=== PATIENT | male | born 1970 | race Caucasian/White ===

== ENCOUNTER 2019-08-27 10:57 | Emergency (ER) | payer MEDICAID, SELFPAY ==
[2019-08-27 11:00] VITALS: BP 121/83; PULSE 95; RESP 16; TEMP 37.1; O2SAT 99; BMI 28.6
--- NOTE | 2019-08-27 11:02 | ED_ITS ---
Entered by Jackelyn Delgado, acting as scribe for Michelle Hong DO HPI - Anxiety General: Chief Complaint: Anxiety Stated Complaint: ANXIETY; MED ADJUSTMENT Time Seen by Provider: 08/27/19 11:01 Source: patient Mode of arrival: EMS Limitations: no limitations History of Present Illness: HPI narrative: 49 yo m came to the er by [facility] For Anxiety and out of medication. Onset was today. Pt states that he did some meth about a week ago and then after he quit a day or 2 after he started to feel anxious. Pt said that when he used the meth he smoked it. Pt has had some feeling of being over whelmed, agitated and afraid. Pt is denying hallucinations, seeing things and any SI thoughts at this time. Pt has had done weed in the past but no alcohol. MD complaint: anxiety and other (out of medication) Severity: mild Quality: intermittent Place: home History of similar episodes: Yes Provoking factors: emotional stress Relieving factors: other (drugs) Exacerbating factors: nothing Associated symptoms: Reports no associated symptoms; Deny chest pain, chills, fever(s), headache(s), nausea or vomiting Review of Systems General: Reports: other (negative unless marked) Const: Denies: fever or chills ENMT: Denies: throat pain Card: Denies: chest pain Resp: Denies: shortness of breath or productive cough GI: Denies: nausea, vomiting, diarrhea, constipation or blood in stool Musc: Denies: back pain or extremity swelling Skin/Breast: Denies: rash Neuro: Denies: headache, numbness in extremities or weakness in extremities [facility] ED PFSH: Social History Smoking and tobacco status: current every day smoker Physical Exam Const: COMMON NORMALS: no apparent distress and oriented x3 GENERAL APPEARANCE: cooperative; not in distress HENMT: COMMON NORMALS: normocephalic HEAD & SCALP: normal to inspection and normocephalic MOUTH: oral and palatal mucosa normal and lip normal THROAT: posterior oropharynx normal and tonsils normal Neck/C-Spine: COMMON NORMALS: full ROM, no lymphadenopathy, supple and no meningeal signs GENERAL: Yes normal visual inspection and Yes trachea midline Chest: COMMONS NORMALS: inspection of chest normal Resp: COMMON NORMALS: normal respiratory effort, no retractions and clear to auscultation bilaterally EFFORT & INSPECTION: Yes able to speak in complete sentences and No respiratory distress AUSCULTATION: clear to auscultation bilaterally, no rales, no rhonchi and no wheezes Cardio: COMMON NORMALS: regular rate, regular rhythm, S1 normal heart sound, S2 normal heart sound and no murmurs RATE: regular rate RHYTHM: regular rhythm HEART SOUNDS: S1 normal and S2 normal PERIPHERAL PULSES: radial pulses present and dorsalis pedis pulses present GI: COMMON NORMALS: normal to inspection, nondistended, normoactive bowel sounds, soft to palpation and non-tender INSPECTION: Yes normal to inspection AUSCULTATION: Yes normoactive bowel sounds PALPATION: Yes soft, No tender, No guarding and No rigid RECTAL EXAM: Yes deferred : COMMON NORMALS: Yes no CVA tenderness BLADDER/KIDNEY EXAM: Yes no CVA tenderness Back/Pelvis: COMMON NORMALS: no CVA tenderness Extremity: COMMON NORMALS: normal to inspection, full ROM, normal capillary refill, no calf tenderness and no pedal edema Neuro: COMMON NORMALS: oriented x3, CN's II-XII intact bilaterally, moves all extremities and no focal motor deficits MENINGEAL SIGNS: Yes no meningeal signs Psych: COMMON NORMALS: mental status grossly normal, thought process normal, denies hallucinations, denies homicidal ideation and denies suicidal ideation ATTITUDE: Yes calm ACTIVITY/MOTOR BEHAVIOR: Yes appropriate eye contact THOUGHT PROCESS: normal thought process THOUGHT CONTENT: Yes normal thought content JUDGEMENT: fair Skin: COMMON NORMALS: no rashes or lesions noted GENERAL SKIN EXAM: no rashes or lesions noted Course Vital Signs: Vital signs: Vital Signs Temperature 98 F 08/27/19 12:08 Pulse Rate 76 08/27/19 12:08 Respiratory Rate 16 08/27/19 12:08 Blood Pressure 142/90 08/27/19 12:08 Pulse Oximetry 98 08/27/19 12:08 MDM - Anxiety MDM Narrative: Medical decision making narrative: Pt is not suicidal or homicidal, he states he feels lke he needs to get donna in with [facility]. I will have case management get him set up with an appointment as an outpt, he is not p sychotic, we have discussed that meth can cause damage to hid kidneys and heart and he knows that he needs to quit. He states he feels much better now and is hungry. EKG Data^: EKG 1: Interpretation: Chest X-Ray 08/27/19 11:11 IMPRESSION: No acute findings. Other EKG comments: Chest X-Ray 08/27/19 11:11 IMPRESSION: No acute findings. Draft Patient: Celio York #: [id number] : 1970Acct#:[id number] Age/Sex: 49 / MADM Date: 08/27/19 Loc: ERRoom/Bed: Attending Dr: Ordering Provider/Ordering MD: Michelle Hong DO Date of Service: 08/27/19 Procedure(s): ECG 12 lead EKG Accession Number(s): [id number] Report Number: [id number] Measurements Intervals [place] Rate: 57 P: 42 CT: 162 QRS: 5 QRSD: 89 T: 42 QT: 428 QTc: 417 SINUS BRADYCARDIA Compared to ECG 01/04/2016 01:51:36 Prolonged QT interval no longer present [id number] Dictated By:INTERFACE,USER Signed By:Signed Date/Time: DD/ 26 Lab Data: Attestation: I reviewed the patient's lab results. Labs: Lab Results 08/27/19 08/27/19 Range/Units 11:18 11:18 WBC 4.9 (4.0-10.0) 10^3/ uL RBC 5.61 H (4.1-5.3) 10^6/u L Hgb 17.7 H (11.7-16.6) g/dL Hct 52.8 H (42.0-52.0) % MCV 94.1 H (80-94) fL MCH 31.6 (28.0-34.0) pg MCHC 33.5 (30.0-36.0) g/dL RDW 12.4 (12.1-15.1) % Plt Count 277 (130-400) 10^3/c mm MPV 10.1 (7.4-10.4) fL Neut % (Auto) 22.2 % Lymph % (Auto) 57.3 % [place] % (Auto) 18.1 % Eos % (Auto) 1.4 % Baso % (Auto) 1.0 % Neut # (Auto) 1.1 L (1.8-7.7) 10^3/u L Lymph # (Auto) 2.8 (0.8-4.8) 10^3/u L [place] # (Auto) 0.9 (0.2-0.9) 10^3/u L Eos # (Auto) 0.1 (0.0-0.8) 10^3/u L Baso # (Auto) 0.1 (0.0-0.1) 10^3/u L Nucleated RBC % (a uto) 0 % Nucleated RBCs # 0.0 /100WBC Sodium 141 (136-145) mmol/L Potassium 4.2 (3.5-5.1) mmol/L Chloride 102 (98-107) mmol/L Carbon Dioxide 29 (22-29) mmol/L Anion Gap 14.2 (5-19) BUN 5 L (6-20) mg/dL Creatinine 0.9 (0.7-1.2) mg/dL GFR Calculation 90.1 (90-130) mL/min Glucose 106 (65-115) mg/dL Calculated Osmolal ity 288 (285-295) mOsm/k g Calcium 10.2 (8.5-10.5) mg/dL Phosphorus 2.4 L (2.5-4.5) mg/dL Magnesium 2.3 (1.7-2.3) mg/dL Total Bilirubin 0.7 (0.15-1.2) mg/dL AST 36 (0-40) U/L ALT 41 (0-41) U/L Alkaline Phosphata se 100 (40-130) IU/L Creatine Kinase 71 (39-308) U/L Total Protein 8.3 (6.6-8.7) g/dL Albumin 4.8 (3.5-5.2) g/dL Globulin 3.5 (1.3-4.6) g/dL Discharge Plan Discharge Patient Disposition: Home, Self-Care Clinical Impression: Acute anxiety, Methamphetamine abuse Condition: Stable Discharge Orders: Discharge Order (Routine); Ordered 08/27/19 Ordered By: Michelle Hong Referrals: Mary Alamo, RN [Emergency Nurse] - 1-3 days Discharge Diet: Advance as tolerated Discharge Activity: Resume usual activity Patient Instructions: Depression (ED), Anxiety (ED) Activity Restrictions/Additional Instructions: f/u with [facility] as instructed by case management. Return if worse, any problem, any change. stop using meth Discharge Date/Time: 08/27/19 12:11 Coding Level of Care Code ED Environmental Field Team Member for Chg Fwd Exam Comprehensive The documentation recorded by the Danny stovall Stephanie Lyn, accurately reflects the service I personally performed and the decisions made by , Michelle Hong, DO
--- NOTE | 2019-08-27 11:11 | XRR_ITS ---
PROCEDURE INFORMATION: Exam: XR Chest, 1 View Exam date and time: 08/27/2019 11:38 AM Age: 49 years old Clinical indication: Shortness of breath TECHNIQUE: Imaging protocol: XR of the chest Views: 1 view. COMPARISON: No relevant prior studies available. FINDINGS: Lungs: Unremarkable. No consolidation. Pleural space: Unremarkable. No pleural effusion. No pneumothorax. Heart/Mediastinum: Unremarkable. No cardiomegaly. Bones/joints: Unremarkable. XR/XR chest 1V portable [id number] IMPRESSION: No acute findings.
--- NOTE | 2019-08-27 11:13 | ECG_ITS ---
Measurements Intervals [place] Rate: 57 P: 42 MS: 162 QRS: 5 QRSD: 89 T: 42 QT: 428 QTc: 417 SINUS BRADYCARDIA Compared to ECG 01/04/2016 01:51:36 Prolonged QT interval no longer present Electronically Signed On 08-28-2019 17:20:27 CDT by Osman Rodriguez M.D. [id number]
[2019-08-27 11:22] LABS: Basophils # 0.1 10^3/uL (0.0-0.1); Eosinophils # 0.1 10^3/uL (0.0-0.8); Eosinophils % 1.4 %; Hematocrit 52.8 % (42.0-52.0); Hemoglobin 17.7 g/dL (11.7-16.6); Lymphocytes # 2.8 10^3/uL (0.8-4.8); Lymphocytes % 57.3 %; Mean Corpuscular HGB Conc 33.5 g/dL (30.0-36.0); Mean Corpuscular Hemoglobin 31.6 pg (28.0-34.0); Mean Corpuscular Volume 94.1 fL (80-94); Mean Platelet Volume 10.1 fL (7.4-10.4); Monocytes # 0.9 10^3/uL (0.2-0.9); Monocytes % 18.1 %; Neutrophils # 1.1 10^3/uL (1.8-7.7); Neutrophils % 22.2 %; Nucleated Red Blood Cells % 0 %; Platelet Count 277 10^3/cmm (130-400); Red Blood Count 5.61 10^6/uL (4.1-5.3); Red Cell Distribution Width 12.4 % (12.1-15.1); White Blood Count 4.9 10^3/uL (4.0-10.0)
[2019-08-27] MEDS: LORazepam 2 mg/mL INJ 1 mL IM (11:26)
[2019-08-27] MEDS: sodium chloride 0.9% 1,000 ML 999 ML IV (11:26)
[2019-08-27 11:47] LABS: Alanine Aminotransferase 41 U/L (0-41); Albumin Level 4.8 g/dL (3.5-5.2); Alkaline Phosphatase 100 IU/L (40-130); Anion Gap 14.2 (5-19); Aspartate Amino Transferase 36 U/L (0-40); Blood Urea Nitrogen 5 mg/dL (6-20); Calcium 10.2 mg/dL (8.5-10.5); Carbon Dioxide 29 mmol/L (22-29); Chloride 102 mmol/L (98-107); Creatine Phosphokinase 71 U/L (39-308); Globulin 3.5 g/dL (1.3-4.6); Glomerular Filtration Rate 90.1 mL/min (90-130); Glucose 106 mg/dL (65-115); Magnesium 2.3 mg/dL (1.7-2.3); Osmolality Calculated 288 mOsm/kg (285-295); Phosphorus 2.4 mg/dL (2.5-4.5); Potassium 4.2 mmol/L (3.5-5.1); Sodium 141 mmol/L (136-145); Total Bilirubin 0.7 mg/dL (0.15-1.2); Total Protein 8.3 g/dL (6.6-8.7)
[2019-08-27 12:08] VITALS: BP 142/90; PULSE 76; RESP 16; TEMP 36.6; O2SAT 98
--- NOTE | 2019-08-29 10:30 | DCPLANNER ---
manager english had message to schedule a follow up appointment for patient with [facility]. manager english called [facility] to confirm that patient is being seen at the clinic. manager english spoke with Olga, was told that patient has not been seen in over a year and would have to do a walk in assessment. manager english called patient to inform patient that he would have to do a walk in assessment in order to be seen. manager english was unable to speak with patient at this time, a voicemail was left for patient to return bilingual case manager phone call.
== END 2019-08-27 12:11 | disposition home or self-care (01) ==
PROVIDERS: Emergency Provider Emergency Medicine
DX: F41.9 Anxiety disorder, unspecified (principal); F15.10 Other stimulant abuse, uncomplicated; F17.200 Nicotine dependence, unspecified, uncomplicated
CPT/HCPCS: 12345; 36415; 71045; 80053; 82550; 83735; 84100; 85025; 93005; 96360; 96372; 99282; 99284; J2060; J7030